=== PATIENT | male | born 1975 | race Caucasian/White ===

== ENCOUNTER 2017-04-28 16:20 | Emergency (ER) | payer BC ==
--- NOTE | 2017-04-28 17:05 | C.PDOC ---
History Of Present Illness <Tonya Resendiz - Last Filed: 04/28/17 17:46> <Ana Gleason - Last Filed: 04/28/17 21:52> CC: "Abominal pain" HPI: 41 year old male who presents to the ED with abdominal pain. He states he has right lower quadrant pain that started today at 11am. He states he didn't eat anything out of his regular routine as he had some bread for breakfast. He said he vomited 4x today and it looked yellow. He denies blood in his vomit. He states this has never happened before. He states the pain comes and goes it is about an 8/10. The pain feels like a pulsating and sometimes sharp pain. Nothing makes the pain better or worse. He states he also had liquid stool with blood on Wednesday and Wednesday. He states today he had a normal bowel movement with no blood in his stool. He denies fever, chills, night sweats, chest pain, palpitations, or shortness of breath. PMD: [place] but patient does not recall the name Past Medical History: Denies Past Surgical History: Denies Medications: Denies Allergies: NKDA Family History: denies colon cancer Social History: Smoker for 15 years about 3 cigarettes per day; 4 beers per week ; machine shop apprentice at a warehouse; denies illicit drug use (Tonya Resendiz) History Per: Patient History/Exam Limitations: no limitations Onset/Duration Of Symptoms: Days Current Symptoms Are (Timing): Still Present Pain Scale Rating Of: 8 Location Of Pain/Discomfort: RLQ Radiation Of Pain To:: None Quality Of Discomfort: Sharp, Other (pulsating ) Associated Symptoms: Nausea, Vomiting, Diarrhea, Urinary Symptoms (dysuria ). denies: Fever, Chills, Chest Pain Exacerbating Factors: denies: Cough, Food <Tonya Resendiz - Last Filed: 04/28/17 17:46> <Ana Gleason - Last Filed: 04/28/17 21:52> Time Seen by Provider: 04/28/17 16:38 Chief Complaint (Nursing): GI Problem Past Medical History - Medical History PMH: No Chronic Diseases Family History: States: No Known Family Hx, Hypertension - Social History Hx Tobacco Use: Yes Hx Alcohol Use: Yes Hx Substance Use: No - Immunization History Hx Tetanus Toxoid Vaccination: No Hx Influenza Vaccination: No Hx Pneumococcal Vaccination: No <Tonya Resendiz - Last Filed: 04/28/17 17:46> Vital Signs: Last Vital Signs Temp 97.9 F 04/28/17 19:28 Pulse 63 04/28/17 19:28 Resp 20 04/28/17 19:28 BP 141/92 H 04/28/17 19:28 Pulse Ox 100 04/28/17 19:28 Review Of Systems Constitutional: Negative for: Fever, Chills, Sweats Cardiovascular: Negative for: Chest Pain, Palpitations, Light Headedness Respiratory: Negative for: Cough, Shortness of Breath Gastrointestinal: Positive for: Nausea, Vomiting, Abdominal Pain, Diarrhea, Melena Genitourinary: Positive for: Dysuria. Negative for: Frequency, Hematuria, Penile Pain Neurological: Negative for: Dizziness <Tonya Resendiz - Last Filed: 04/28/17 17:46> Physical Exam - Physical Exam Appears: Well Skin: Normal Color Head: Atraumatic Eye(s): bilateral: Normal Inspection, PERRL, EOMI Cardiovascular: Rhythm Regular, No Edema, No Murmur Respiratory: Normal Breath Sounds, No Decreased Breath Sounds, No Accessory Muscle Use, No Rales, No Rhonchi, No Stridor, No Wheezing Gastrointestinal/Abdominal: Bowel Sounds, Soft, Tenderness (RLQ pain ), No Distention, No Guarding, No Rebound, Other (Rovsing's sign negative; Obturator sign negative ) Rectal: Heme Negative, No Maroon Stool, No Blood Streaked Stool, No Hemorrhoids , No Mass, No Tenderness Extremity: No Tenderness, No Pedal Edema, No Swelling Neurological/Psych: Oriented x3, Normal Speech, Normal Cognition <Tonya Resendiz - Last Filed: 04/28/17 17:46> ED Course And Treatment O2 Sat by Pulse Oximetry: 98 <Tonya Resendiz - Last Filed: 04/28/17 17:46> - Laboratory Results Result Diagrams: 04/28/17 17:26 04/28/17 17:26 Lab Interpretation: Normal - CT Scan/US CT ABD/PEL Other Rad Studies (CT/US): Read By Radiologist, Radiology Report Reviewed CT[facility] [id number]. Name: SHEY WALLS Age: 41Years M Date: 04/28/2017. SSN: [id number] : 1975. Study: CT ABDOMEN/PELVIS W Requesting Physician: Ana Gleason. Images: 527. Addl Studies: Provided Clinical History: abd pain. CONFIDENTIALITY STATEMENT. This transmission is confidential and is intended to be a privileged communication. It is intended only for the use of the addressee. Access to this. message by anyone else is unauthorized. If you are not the intended recipient, any disclosure, copying, distribution or any action taken, or omitted to. be taken in reliance on it is prohibited and may be unlawful. If you received this communication in error, please notify us by telephone, so that return. of this document to us can be arranged. Page 1 of 3. EXAM: CT Abdomen and Pelvis With Intravenous Contrast. EXAM DATE/TIME: 04/28/2017 5:08 PM. CLINICAL HISTORY: 41 years old, male; Pain; Abdominal pain; Flank; Right lower quadrant (rlq); Additional info: Abd pain. TECHNIQUE: Axial computed tomography images of the abdomen and pelvis with intravenous contrast. All CT. scans at this facility use one or more dose reduction techniques, viz.: automated exposure control;. ma/kV adjustment per patient size (including targeted exams where dose is matched to indication; i.e. head); or iterative reconstruction technique. Coronal and sagittal reformatted images were created and reviewed. CONTRAST: 100 mL of omnipaque 300 administered intravenously. COMPARISON: Prior CT abdomen and pelvis of 2015-07-18. FINDINGS: LIMITATIONS : Moderate streak/motion artifact. LOWER THORAX: No infiltrate seen in the lung bases. ABDOMEN: LIVER: Fatty infiltration of the liver. [facility] [id number]. Name: SHEY WALLS Age: 41Years M Date: 04/28/2017. SSN: [id number] : 1975. Study: CT ABDOMEN/PELVIS W Requesting Physician: Ana Gleason. Images: 527. Addl Studies: Provided Clinical History: abd pain. CONFIDENTIALITY STATEMENT. This transmission is confidential and is intended to be a privileged communication. It is intended only for the use of the addressee. Access to this. message by anyone else is unauthorized. If you are not the intended recipient, any disclosure, copying, distribution or any action taken, or omitted to. be taken in reliance on it is prohibited and may be unlawful. If you received this communication in error, please notify us by telephone, so that return. of this document to us can be arranged. Page 2 of 3. GALLBLADDER AND BILE DUCTS: No CT evidence of acute cholecystitis. No evidence of. significant biliary ductal dilatation. PANCREAS : No CT evidence of acute pancreatitis. SPLEEN: No acute abnormality of the spleen identified. ADRENALS: No acute abnormality of the adrenal glands identified. KIDNEYS AND URETERS: No acute abnormality of the kidneys identified. No evidence of. significant hydrouereteronephrosis. STOMACH AND BOWEL: Extensive colonic diverticulosis, without definite evidence of acute. diverticulitis. Retained stool noted throughout the colon. Otherwise, no significant abnormality of the. bowel is identified, allowing for motion artifact No evidence of small bowel obstruction. No acute. abnormality of the stomach or duodenum identified. APPENDIX: Appendix is seen, and is within normal limits in appearance. PELVIS: BLADDER: Moderate, diffuse bladder wall thickening. REPRODUCTIVE: No acute abnormality of the reproductive organs is seen. ABDOMEN and PELVIS: INTRAPERITONEAL SPACE: No evidence of free intraperitoneal air or fluid. BONES/JOINTS: No acute fractures or other acute bony abnormality noted. SOFT TISSUES: Small umbilical hernia, containing only fat. VASCULATURE: No evidence of abdominal aortic aneurysm. No evidence of periaortic. hemorrhage. LYMPH NODES: No evidence of diffuse lymphadenopathy. IMPRESSION: - MODERATE, DIFFUSE BLADDER WALL THICKENING. IN AN ACUTE SETTING, THIS COULD. BE DUE TO CYSTITIS. RECOMMEND CLINICAL CORRELATION. [facility]. [employer] [facility] [employer]. Final Radiology Report [id number]. Name: SHEY WALLS Age: 41Years M Date: 04/28/2017. SSN: [id number] : 1975. Study: CT ABDOMEN/PELVIS W Requesting Physician: Ana Gleason. Images: 527. Addl Studies: Provided Clinical History: abd pain. CONFIDENTIALITY STATEMENT. This transmission is confidential and is intended to be a privileged communication. It is intended only for the use of the addressee. Access to this. message by anyone else is unauthorized. If you are not the intended recipient, any disclosure, copying, distribution or any action taken, or omitted to. be taken in reliance on it is prohibited and may be unlawful. If you received this communication in error, please notify us by telephone, so that return. of this document to us can be arranged. Page 3 of 3. - Otherwise, no evidence of significant acute process, allowing for motion artifact. - Extensive colonic diverticulosis, without definite diverticulitis. - See above for remaining findings. Thank you for allowing us to participate in the care of your patient. Dictated and Authenticated by: Patti Estevez MD. 04/28/2017 9:32 PM Eastern Time ([place] & [place]) Reevaluation Time: 21:47 Reassessment Condition: Improved (Reaims comfortable. Abdomen soft without guarding or rigidity.) <Ana Gleason - Last Filed: 04/28/17 21:52> Medical Decision Making <Tonya Resendiz - Last Filed: 04/28/17 17:46> <Ana Gleason - Last Filed: 04/28/17 21:52> Medical Decision Making: RLQ Pain possibly secondary to appendicitis - Abdominal/pelvic CT with PO/IV contrast - f/u cmp, cbc, lipase Diarrhea with blood in stool - f/u occult blood Vomiting - Bolus of NS Dysuria - f/u UA (Tonya Resendiz) Disposition <Tonya Resendiz - Last Filed: 04/28/17 17:46> Counseled Patient/Family Regarding: Studies Performed, Diagnosis, Need For Followup, Rx Given - Disposition Disposition Time: 21:51 <Ana Gleason - Last Filed: 04/28/17 21:52> - Disposition Referrals: [facility] [Outside] Disposition: HOME/ ROUTINE Condition: IMPROVED Instructions: Abdominal Pain (ED) Forms: [employer] ([place]) Print Language: ICELANDIC - Clinical Impression Clinical Impression: Abdominal pain
[2017-04-28] MEDS ORDERED: Iohexol 240 (50 ml) PO STA (17:08)
[2017-04-28] MEDS ORDERED: Sodium Chloride 0.9% 1,000 ML IV ONE (17:08)
[2017-04-28] MEDS ORDERED: Iohexol 240 (50 ml) ONE (17:21)
[2017-04-28 17:36] LABS: HEMOGLOBIN 15.5 g/dL (12.0-18.0); RED CELL DISTRIBUTION WIDTH 12.9 % (11.5-14.5)
[2017-04-28 17:46] LABS: BASO # 0.1 K/uL (0.0-0.2); BASO % 0.7 % (0.0-2.0); EOS % 9.8 % (0.0-4.0); LYMPH # 2.9 K/uL (1.0-4.3); LYMPH % 29.8 % (20.0-40.0); MEAN CELL VOLUME 93.1 fL (80.0-94.0); MEAN CORPUSCULAR HEMOGLOBIN 32.2 pg (27.0-31.0); MEAN CORPUSCULAR HGB CONC 34.6 g/dL (33.0-37.0); MEAN PLATELET VOLUME 9.5 fL (7.2-11.7); MONO # 0.8 K/uL (0.0-0.8); MONO % 7.7 % (0.0-10.0); NEUT # 5.1 K/uL (1.8-7.0); RBC 4.82 Mil/uL (4.40-5.90); WHITE BLOOD COUNT 9.9 K/uL (4.8-10.8)
[2017-04-28 18:10] LABS: ALB/GLOB RATIO 1.3 (1.0-2.1); ALBUMIN 4.2 g/dL (3.5-5.0); ALT/SGPT 36 U/L (21-72); AST/SGOT 26 U/L (17-59); BLOOD UREA NITROGEN 10 mg/dL (9-20); CALCIUM 9.2 mg/dl (8.6-10.4); GFR AFRICAN-AMERICAN > 60; GFR NON-AFRICAN AMERICAN > 60; LIPASE 65 U/L (23-300)
[2017-04-28] MEDS ORDERED: Iohexol 300 100 ML IJ ONE (19:03)
[2017-04-28 19:28] VITALS: RESP 20
[2017-04-28 20:10] LABS: URINE BILIRUBIN NEGATIVE (NEGATIVE); URINE BLOOD NEGATIVE (NEGATIVE); URINE CLARITY Clear (Clear); URINE COLOR Colorless (YELLOW); URINE GLUCOSE (UA) NORMAL (Normal); URINE LEUKOCYTE ESTERASE NEG Leu/uL (Negative); URINE NITRATE NEGATIVE (NEGATIVE); URINE PROTEIN NEGATIVE (NEGATIVE); URINE UROBILINOGEN NORMAL mg/dL (0.2-1.0)
--- NOTE | 2017-04-28 21:33 | CT ---
EXAM: CT Abdomen and Pelvis With Intravenous Contrast EXAM DATE/TIME: 04/28/2017 5:08 PM CLINICAL HISTORY: 41 years old, male; Pain; Abdominal pain; Flank; Right lower quadrant (rlq); Additional info: Abd pain TECHNIQUE: Axial computed tomography images of the abdomen and pelvis with intravenous contrast. All CT scans at this facility use one or more dose reduction techniques, viz.: automated exposure control; ma/kV adjustment per patient size (including targeted exams where dose is matched to indication; i.e. head); or iterative reconstruction technique. Coronal and sagittal reformatted images were created and reviewed. CONTRAST: 100 mL of omnipaque 300 administered intravenously. COMPARISON: Prior CT abdomen and pelvis of 2015-07-18 FINDINGS: LIMITATIONS: Moderate streak/motion artifact. LOWER THORAX: No infiltrate seen in the lung bases. ABDOMEN: LIVER: Fatty infiltration of the liver. GALLBLADDER AND BILE DUCTS: No CT evidence of acute cholecystitis. No evidence of significant biliary ductal dilatation. PANCREAS: No CT evidence of acute pancreatitis. SPLEEN: No acute abnormality of the spleen identified. ADRENALS: No acute abnormality of the adrenal glands identified. KIDNEYS AND URETERS: No acute abnormality of the kidneys identified. No evidence of significant hydrouereteronephrosis. STOMACH AND BOWEL: Extensive colonic diverticulosis, without definite evidence of acute diverticulitis. Retained stool noted throughout the colon. Otherwise, no significant abnormality of the bowel is identified, allowing for motion artifact No evidence of small bowel obstruction. No acute abnormality of the stomach or duodenum identified. APPENDIX: Appendix is seen, and is within normal limits in appearance. PELVIS: BLADDER: Moderate, diffuse bladder wall thickening. REPRODUCTIVE: No acute abnormality of the reproductive organs is seen. ABDOMEN and PELVIS: INTRAPERITONEAL SPACE: No evidence of free intraperitoneal air or fluid. BONES/JOINTS: No acute fractures or other acute bony abnormality noted. SOFT TISSUES: Small umbilical hernia, containing only fat. VASCULATURE: No evidence of abdominal aortic aneurysm. No evidence of periaortic hemorrhage. LYMPH NODES: No evidence of diffuse lymphadenopathy. IMPRESSION: - MODERATE, DIFFUSE BLADDER WALL THICKENING. IN AN ACUTE SETTING, THIS COULD BE DUE TO CYSTITIS. RECOMMEND CLINICAL CORRELATION. - Otherwise, no evidence of significant acute process, allowing for motion artifact. - Extensive colonic diverticulosis, without definite diverticulitis. - See above for remaining findings.
[2017-04-28 21:50] VITALS: BP 125/86; PULSE 56; TEMP 98.2; O2SAT 99
[2017-04-29] MEDS ORDERED: Potassium Chloride 20 mEq ER Tab PO ONE (18:36)
== END 2017-04-28 21:56 | disposition home or self-care (01) ==
LOC: C.ER 16:20
DX: R10.31 Right lower quadrant pain (principal); F17.210 Nicotine dependence, cigarettes, uncomplicated
CPT/HCPCS: 74177; 80053; 81001; 83690; 85025; 96360; 99285; G0328; J7040; Q9966; Q9967